=== PATIENT | female | born 1990 | race Two or more races ===

== ENCOUNTER 2020-02-17 15:48 | Emergency (ER) | payer OTHER ==
[~2020-02-17] VITALS: Ht 160 cm; Wt 109.5 kg
[2020-02-17] MEDS ORDERED: MOBI15TA PO (16:02)
[2020-02-17] MEDS ORDERED: dexameTHASONE 20MG/5ML VIAL (J1100 PER 1MG) IV ONE (16:15)
[2020-02-17] MEDS: COMBIVENT RESPIMAT 100-20MCG INHALER 4GM INH SCH ×2 (17:04→17:12)
[2020-02-17 17:53] LABS: INR 0.99; PROTHROMBIN TIME 13.3 SECONDS (11.8-14.0)
[2020-02-17 17:56] LABS: D-DIMER QUANT 573.71 ng/ml (<500)
[2020-02-17 18:17] LABS: ALBUMIN 4.1 GM/DL (3.2-5.2); ALT/SGPT 34 U/L (12-78); BILIRUBIN,DIRECT < 0.1 MG/DL (0.0-0.2); BILIRUBIN,TOTAL 0.3 MG/DL (0.2-1.0); CPK CREATINE PHOSPHOKINASE 221 U/L (26-192); MB/CK RELATIVE INDEX 0.45 (< OR =4); NT-PRO BNP 12 PG/ML (<125); THYROID STIMULATING HORMONE 0.967 uIU/ML (0.358-3.740); TOTAL PROTEIN 8.1 GM/DL (6.4-8.2); TROPONIN I < 0.02 NG/ML (< 0.10)
[2020-02-17] MEDS ORDERED: ISOVUE-370 76% 100ML VIAL As Ordered ONE (19:23)
[2020-02-17] MEDS ORDERED: ALBUTEROL 90 MCG/ACT 8GM HFA INHALER INH ONE (19:30)
--- NOTE | 2020-02-17 19:49 | REPVR ---
PROCEDURE INFORMATION: Exam: XR Chest, 1 View Exam date and time: 02/17/2020 7:18 PM Age: 29 years old Clinical indication: Other: Cough; Additional info: Dyspnea/cough TECHNIQUE: Imaging protocol: XR of the chest Views: 1 view. COMPARISON: No relevant prior studies available. FINDINGS: Lungs: Degree of lung inflation is normal. No evidence of pulmonary edema. No focal consolidation or parenchymal lung mass. Pleural space: No pleural effusion or pneumothorax. Heart/Mediastinum: Cardiac silhouette appears normal. No adenopathy or hilar mass. Bones/joints: Osseous structures show no concerning abnormality. IMPRESSION: No acute or focal cardiopulmonary process. Electronically signed by: Kosta Velasquez On 02/17/2020 19:48:55 PM
--- NOTE | 2020-02-17 19:54 | REPVR ---
PROCEDURE INFORMATION: Exam: CT Angiography Chest With Contrast Exam date and time: 02/17/2020 7:41 PM Age: 29 years old Clinical indication: Abnormal findings; Other: Elevated d-dimer, SOB, mirena TECHNIQUE: Imaging protocol: Computed tomographic angiography of the chest with intravenous contrast. 3D rendering (Not supervised by radiologist): MIP and/or 3D reconstructed images were created by the technologist. Radiation optimization: All CT scans at this facility use at least one of these dose optimization techniques: automated exposure control; mA and/or kV adjustment per patient size (includes targeted exams where dose is matched to clinical indication); or iterative reconstruction. Contrast material: ISOVUE 370; Contrast volume: 75 ml; Contrast route: INTRAVENOUS (IV); COMPARISON: CR PORTABLE CHEST X-RAY 02/17/2020 7:18 PM FINDINGS: Pulmonary arteries: Peripheral pulmonary artery evaluation limited by cardiac and respiratory motion artifact. Central pulmonary arteries show no intraluminal defect suggestive of clot. Aorta: No thoracic aortic aneurysm or dissection. Lungs: Pulmonary vascular/interstitial pattern does not suggest active pulmonary edema. No suspicious lung mass or air space process. No central endobronchial lesion. Pleural space: No pleural effusion or pneumothorax. Heart: No overt cardiac enlargement or abnormal volume of pericardial fluid. Lymph nodes: No enlarged mediastinal lymph nodes. Bones/joints: Bony structures show no acute fracture or destructive process. Soft tissues: No asymmetric abnormality of the extrathoracic soft tissues. IMPRESSION: 1. No evidence of acute, central pulmonary embolus. Peripheral pulmonary arterial evaluation is limited by cardiac and respiratory motion artifact. 2. No other acute or concerning focal intrathoracic abnormality. Electronically signed by: Kosta Velasquez On 02/17/2020 19:54:00 PM
[2020-02-17 20:16] LABS: BASO % 0.3 % (0.0-1.0); EOS # 0.1 10^3/uL (0.0-0.5); EOS % 0.7 % (0.0-3.0); HEMATOCRIT 37.1 % (36.0-47.0); HEMOGLOBIN 11.9 g/dl (12.0-15.5); LYMPH # 2.6 10^3/uL (1.5-5.0); LYMPH % 20.8 % (24.0-44.0); MEAN CORPUSCULAR HEMOGLOBIN 27.7 pg (27.0-33.0); MEAN CORPUSCULAR HGB CONC 32.1 g/dl (32.0-36.5); MEAN CORPUSCULAR VOLUME 86.5 fl (80.0-96.0); MONO # 0.8 10^3/uL (0.0-0.8); MONO % 6.5 % (0.0-5.0); NEUTROPHILS % 71.3 % (36.0-66.0); PLATELET COUNT, AUTOMATED 182 10^3/uL (150-450); RED BLOOD COUNT 4.29 10^6/uL (4.00-5.40); WHITE BLOOD COUNT 12.6 10^3/uL (4.0-10.0)
[2020-02-17] MEDS ORDERED: PRED20TA PO (20:29)
[2020-02-17] MEDS ORDERED: PROV108A INH (20:29)
[2020-02-17 21:04] VITALS: BP 111/69
--- NOTE | 2020-02-21 09:57 | ECGEPIP ---
[facility] - ED Test Date: 2020-02-17 Pat Name: BLAINE QUINTANA Department: Room: - Gender: Female R[employer]: [facility] : 1990 Requested By: YECENIA Camara Order Number: [id number] Reading MD: Stevie Roberts Measurements Intervals [place] Rate: 90 P: 18 NC: 136 QRS: -4 QRSD: 95 T: 7 QT: 364 QTc: 446 Interpretive Statements SINUS RHYTHM WITH SINUS ARRHYTHMIA INCOMPLETE RIGHT BUNDLE BRANCH BLOCK MODERATE VOLTAGE CRITERIA FOR LVH, CONSIDER NORMAL VARIANT NO PRIORS FOR COMPARISON Electronically Signed on 02-21-2020 9:57:34 EDT by Stevie Roberts
== END 2020-02-17 21:07 | disposition home or self-care (01) ==
LOC: EDBD 15:48 → M ED 15:48
DX: J45.909 Unspecified asthma, uncomplicated (principal); I45.19 Other right bundle-branch block
CPT/HCPCS: 36415; 71045; 71275; 80047; 80076; 82550; 82553; 83880; 84436; 84443; 84484; 84702; 85025; 85379; 85610; 93005; 93041; 94640; 94760; 99285; J1100; Q9967

== ENCOUNTER 2020-06-14 08:37 | Emergency (ER) | payer OTHER ==
[~2020-06-14] VITALS: Ht 160 cm; Wt 111.3 kg
[~2020-06-14 08:37] MED LIST: MOBI15TA PO; PRED20TA PO; PROV108A INH
[2020-06-14] MEDS ORDERED: ACET-897 PO (08:52)
[2020-06-14] MEDS ORDERED: KETO10TAB PO (09:25)
[2020-06-14] MEDS ORDERED: CYCL5TAB PO (09:25)
[2020-06-14] MEDS ORDERED: KETOROLAC 60MG 2ML VIAL IM ONE (09:30)
[2020-06-14 10:02] VITALS: BP 126/85
== END 2020-06-14 10:01 | disposition home or self-care (01) ==
LOC: M ED 08:37
DX: M62.830 Muscle spasm of back (principal); Z79.899 Other long term (current) drug therapy
CPT/HCPCS: 96372; 99283; J1885

== ENCOUNTER 2020-12-20 05:33 | Emergency (ER) | payer OTHER ==
[~2020-12-20] VITALS: Ht 172.7 cm; Wt 112.4 kg
[~2020-12-20 05:33] MED LIST changes: +ACET-897 PO; +CYCL5TAB PO; +KETO10TAB PO
[2020-12-20 07:39] LABS: BASO % 0.3 % (0.0-1.0); EOS # 0.1 10^3/uL (0.0-0.5); EOS % 0.8 % (0.0-3.0); HEMATOCRIT 40.6 % (36.0-47.0); HEMOGLOBIN 13.1 g/dl (12.0-15.5); LYMPH # 2.7 10^3/uL (1.5-5.0); LYMPH % 28.9 % (24.0-44.0); MEAN CORPUSCULAR HEMOGLOBIN 27.6 pg (27.0-33.0); MEAN CORPUSCULAR HGB CONC 32.3 g/dl (32.0-36.5); MEAN CORPUSCULAR VOLUME 85.7 fl (80.0-96.0); MONO # 0.8 10^3/uL (0.0-0.8); MONO % 8.2 % (2.0-8.0); NEUTROPHILS # 5.7 10^3/uL (1.5-8.5); NEUTROPHILS % 61.5 % (36.0-66.0); PLATELET COUNT, AUTOMATED 276 10^3/uL (150-450); RED BLOOD COUNT 4.74 10^6/uL (4.00-5.40); WHITE BLOOD COUNT 9.2 10^3/uL (4.0-10.0)
[2020-12-20 08:00] LABS: ALBUMIN 4.1 GM/DL (3.2-5.2); ALT/SGPT 39 U/L (12-78); BILIRUBIN,DIRECT < 0.1 MG/DL (0.0-0.2); BILIRUBIN,TOTAL 0.3 MG/DL (0.2-1.0); BLOOD UREA NITROGEN 11 MG/DL (7-18); CALCIUM LEVEL 9.2 MG/DL (8.5-10.1); CARBON DIOXIDE LEVEL 26 MEQ/L (21-32); CHLORIDE LEVEL 106 MEQ/L (98-107); CREATININE FOR GFR 0.83 MG/DL (0.55-1.30); GLOMERULAR FILTRATION RATE > 60.0 (>60); GLUCOSE, FASTING 97 MG/DL (70-100); LIPASE 78 U/L (73-393); POTASSIUM SERUM 4.5 MEQ/L (3.5-5.1); SODIUM LEVEL 137 MEQ/L (136-145); TOTAL PROTEIN 8.4 GM/DL (6.4-8.2)
[2020-12-20] MEDS ORDERED: MIRE1IUD IU (08:10)
[2020-12-20] MEDS ORDERED: NS 1,000 ML IV ONE (08:30)
[2020-12-20] MEDS ORDERED: KETOROLAC 30 MG/ML 1ML VIAL IV ONE (08:30)
[2020-12-20] MEDS ORDERED: ONDANSETRON 4MG/2ML VIAL IV ONE (08:30)
--- NOTE | 2020-12-20 09:06 | REP ---
INDICATION: right flank/abd pain. COMPARISON: Upper abdomen from CT chest 02/17/2020 TECHNIQUE: Noncontrast CT abdomen pelvis with coronal and sagittal reconstructions. FINDINGS: CT abdomen: Lung bases are clear the heart is not enlarged. There is no pericardial thickening or effusion. See no hiatal hernia. The liver, spleen, gallbladder pancreas, adrenal glands and stomach were unremarkable. Small bowel loops in the upper abdomen are without dilatation stool and gas are seen throughout the abdominal portion of the colon without colitis or diverticulitis. There is no evidence of perforation or free air on lung window review of all CT slices. There is no ascites. The aorta is without aneurysm. There is no periaortic, other retroperitoneal or mesenteric pathologic sized lymphadenopathy A punctate 2 mm stone upper pole of the left kidney in a pyramid. There is a focal scar at the superior pole of the left kidney. See no hydronephrosis on the left side. The right kidney shows no stone or hydronephrosis. It has smooth contours. No ureteral dilatation or stone was identified. The spine and ribs show no focal bone abnormality. CT pelvis: Bone windows show the sacrum, SI joints, pelvis and hips intact. Uterus is somewhat globular and shows a IUD in its central aspect. No pelvic or adnexal mass. The bladder is partially filled. It shows no wall thickening, mass or stone. I see no ventral or inguinal hernia nor pathologic sized inguinal adenopathy. Pelvic lymphadenopathy. The appendix is seen and normal. Small bowel loops in the distal ileum are unremarkable. The abdominal and pelvic portions of colon were unremarkable. IMPRESSION: 1. Nonobstructing calculus upper pole left kidney about 2 mm size and a pyramid there may be 1 other punctate 1 mm focus in that same kidney but no hydronephrosis, hydroureter, ureteral or bladder stone. No perinephric edema or periureteral edema. 2. The other abdominal organs were unremarkable. Colon, small bowel loops, stomach, appendix and bony structures unremarkable. 3. Somewhat globular uterus but with an IUD within and no pelvic mass or lymphadenopathy. <Electronically signed by Manuelito Argueta > 12/20/20 [id number]
[2020-12-20] MEDS ORDERED: KETO10TAB PO (10:49)
[2020-12-20] MEDS ORDERED: SIME180C25 PO (10:49)
[2020-12-20] MEDS ORDERED: PEPC1TAB5 PO (10:49)
[2020-12-20 10:56] VITALS: BP 107/52
== END 2020-12-20 11:10 | disposition home or self-care (01) ==
LOC: M ED 05:33
DX: N20.0 Calculus of kidney (principal); Z79.51 Long term (current) use of inhaled steroids
CPT/HCPCS: 74176; 80048; 80076; 81001; 83690; 84702; 85025; 87086; 96361; 96374; 96375; 99284; J1885; J2405

== ENCOUNTER 2020-12-20 18:47 | Emergency (ER) | payer OTHER ==
[~2020-12-20] VITALS: Ht 160 cm; Wt 111.8 kg
[~2020-12-20 18:47] MED LIST changes: +MIRE1IUD IU; +PEPC1TAB5 PO; +SIME180C25 PO
[2020-12-20 22:04] LABS: BASO % 0.3 % (0.0-1.0); EOS # 0.1 10^3/uL (0.0-0.5); EOS % 0.6 % (0.0-3.0); HEMOGLOBIN 12.8 g/dl (12.0-15.5); LYMPH # 2.3 10^3/uL (1.5-5.0); LYMPH % 15.9 % (24.0-44.0); MEAN CORPUSCULAR HEMOGLOBIN 27.7 pg (27.0-33.0); MEAN CORPUSCULAR VOLUME 86.6 fl (80.0-96.0); MONO # 1.1 10^3/uL (0.0-0.8); MONO % 7.3 % (2.0-8.0); NEUTROPHILS # 10.9 10^3/uL (1.5-8.5); NEUTROPHILS % 75.6 % (36.0-66.0); PLATELET COUNT, AUTOMATED 283 10^3/uL (150-450); RED BLOOD COUNT 4.62 10^6/uL (4.00-5.40); WHITE BLOOD COUNT 14.4 10^3/uL (4.0-10.0)
[2020-12-20 22:29] LABS: HCG, SERUM QUALITATIVE NEGATIVE (NEGATIVE)
[2020-12-20 22:31] LABS: ALBUMIN 4.2 GM/DL (3.2-5.2); ALT/SGPT 36 U/L (12-78); BILIRUBIN,DIRECT 0.1 MG/DL (0.0-0.2); BILIRUBIN,TOTAL 0.3 MG/DL (0.2-1.0); BLOOD UREA NITROGEN 9 MG/DL (7-18); CALCIUM LEVEL 8.7 MG/DL (8.5-10.1); CARBON DIOXIDE LEVEL 26 MEQ/L (21-32); CHLORIDE LEVEL 108 MEQ/L (98-107); CREATININE FOR GFR 0.82 MG/DL (0.55-1.30); GLOMERULAR FILTRATION RATE > 60.0 (>60); GLUCOSE, FASTING 99 MG/DL (70-100); POTASSIUM SERUM 4.1 MEQ/L (3.5-5.1); SODIUM LEVEL 139 MEQ/L (136-145); TOTAL PROTEIN 7.9 GM/DL (6.4-8.2)
[2020-12-20 22:32] LABS: LIPASE 68 U/L (73-393)
[2020-12-20] MEDS ORDERED: NS 1,000 ML IV ONE (22:45)
[2020-12-20] MEDS ORDERED: KETOROLAC 30 MG/ML 1ML VIAL IV ONE (22:45)
[2020-12-20 23:27] LABS: CK-MB VALUE MASS < 1.0 NG/ML (<3.6); CPK CREATINE PHOSPHOKINASE 125 U/L (26-192); TROPONIN I < 0.02 NG/ML (< 0.10)
--- NOTE | 2020-12-21 00:28 | REPVR ---
PROCEDURE INFORMATION: Exam: US Abdomen, Limited; Right Upper Quadrant Exam date and time: 12/20/2020 11:39 PM Age: 30 years old Clinical indication: Abdominal pain; Acute; Additional info: Ruq pain, nausea, vomiting TECHNIQUE: Imaging protocol: US abdomen. Real time ultrasound with image documentation. Limited exam focused on the right upper quadrant. COMPARISON: CT ABD PELVIS W/O CONTRAST 12/20/2020 8:38 AM FINDINGS: Liver: Liver is homogeneous in echotexture, with no focal lesion. Gallbladder: Gallbladder contains multiple intraluminal stones. One stone may be impacted in the gallbladder neck and measures 2.3 cm. These are not apparent on the CT. No gallbladder wall thickening or adjacent fluid Common bile duct: Common bile duct measures 4 mm in diameter. Pancreas: Pancreas is only partially visualized due to bowel shadowing. No overt abnormailty. Right kidney: Right kidney measures 10.4 cm in long axis. Right kidney appears normal. Intraperitoneal space: No free fluid. IMPRESSION: Cholelithiasis and possible impacted 2.3 cm non mobile gallbladder neck stone without evidence of gallbladder wall thickening at this point and with no common bile duct obstruction. Electronically signed by: Kosta Velasquez On 12/21/2020 00:27:18 AM
[2020-12-21 01:04] VITALS: BP 105/57
--- NOTE | 2020-12-21 05:38 | ECGEPIP ---
[facility] - ED Test Date: 2020-12-20 Pat Name: BLAINE QUINTANA Department: Room: - Gender: Female [employer]: JELANI : 1990 Requested By: KAROL Richards PA-C Order Number: [id number] Reading MD: Stevie Roberts Measurements Intervals [place] Rate: 89 P: 20 OR: 128 QRS: -8 QRSD: 86 T: 8 QT: 384 QTc: 467 Interpretive Statements Normal sinus rhythm POOR R WAVE PROGRESSION INCOMPLETE RIGHT BUNDLE BRANCH BLOCK NONSPECIFIC T WAVE ABNORMALITY(S) Minimal voltage criteria for LVH, may be normal variant ( R in aVL ) SIMILAR TO 02/17/20 Electronically Signed on 12-21-2020 5:38:04 EDT by Stevie Roberts
== END 2020-12-21 01:30 | disposition home or self-care (01) ==
LOC: M ED 18:47
DX: K80.50 Calculus of bile duct without cholangitis or cholecystitis without obstruction (principal); N20.0 Calculus of kidney; Z79.51 Long term (current) use of inhaled steroids
CPT/HCPCS: 74176; 76705; 80048; 80076; 81001; 82550; 82553; 83690; 84484; 84702; 84703; 85025; 87086; 93005; 96361; 96374; 96375; 99284; J1885; J2405; U0002

== ENCOUNTER 2021-03-04 13:49 | Emergency (ER) | payer OTHER ==
[~2021-03-04] VITALS: Ht 160 cm; Wt 111.0 kg
[2021-03-04] MEDS ORDERED: NS 1,000 ML IV ONE (16:40)
[2021-03-04 16:53] LABS: BASO % 0.4 % (0.0-1.0); EOS # 0.1 10^3/uL (0.0-0.5); HEMATOCRIT 41.6 % (36.0-47.0); HEMOGLOBIN 13.3 g/dl (12.0-15.5); LYMPH # 2.9 10^3/uL (1.5-5.0); LYMPH % 30.5 % (24.0-44.0); MEAN CORPUSCULAR HEMOGLOBIN 27.3 pg (27.0-33.0); MEAN CORPUSCULAR VOLUME 85.4 fl (80.0-96.0); MONO # 0.7 10^3/uL (0.0-0.8); MONO % 7.1 % (2.0-8.0); NEUTROPHILS # 5.8 10^3/uL (1.5-8.5); NEUTROPHILS % 60.8 % (36.0-66.0); PLATELET COUNT, AUTOMATED 294 10^3/uL (150-450); RED BLOOD COUNT 4.87 10^6/uL (4.00-5.40); WHITE BLOOD COUNT 9.5 10^3/uL (4.0-10.0)
--- NOTE | 2021-03-04 17:17 | REPVR ---
PROCEDURE INFORMATION: Exam: CT Head Without Contrast Exam date and time: 03/04/2021 5:05 PM Age: 30 years old Clinical indication: Syncope and collapse TECHNIQUE: Imaging protocol: Computed tomography of the head without contrast. Radiation optimization: All CT scans at this facility use at least one of these dose optimization techniques: automated exposure control; mA and/or kV adjustment per patient size (includes targeted exams where dose is matched to clinical indication); or iterative reconstruction. COMPARISON: No relevant prior studies available. FINDINGS: Brain: No intracranial hemorrhage or extra-axial fluid collection. No evidence of mass effect or midline shift. Joaquin-white matter differentiation is intact. Cerebral ventricles: No ventriculomegaly. Paranasal sinuses: Mild mucosal thickening of the paranasal sinuses. Mastoid air cells: Unremarkable. Bones/joints: No acute osseus lesion or fracture. Soft tissues: Unremarkable. IMPRESSION: 1. No acute intracranial pathology. 2. Mild mucosal thickening of the paranasal sinuses. Electronically signed by: Silvestre Ang On 03/04/2021 17:17:15 PM
[2021-03-04 17:28] LABS: THYROID STIMULATING HORMONE 0.875 uIU/ML (0.358-3.740)
[2021-03-04 18:31] LABS: CK-MB VALUE MASS < 1.0 NG/ML (<3.6); CPK CREATINE PHOSPHOKINASE 198 U/L (26-192); FREE T4 1.25 NG/DL (0.76-1.46); MAGNESIUM LEVEL 2.3 MG/DL (1.8-2.4); MB/CK RELATIVE INDEX 0.51 (< OR =4); TROPONIN I < 0.02 NG/ML (< 0.10)
--- NOTE | 2021-03-04 20:05 | ECGEPIP ---
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
[2021-03-04] MEDS ORDERED: AUGM875T28 PO (20:14)
[2021-03-04 21:11] VITALS: BP 124/67
== END 2021-03-04 21:12 | disposition home or self-care (01) ==
LOC: M ED 13:49
DX: E86.0 Dehydration (principal); J01.90 Acute sinusitis, unspecified; B97.4 Respiratory syncytial virus as the cause of diseases classified elsewhere; E66.9 Obesity, unspecified; Z79.899 Other long term (current) drug therapy; Z97.5 Presence of (intrauterine) contraceptive device; Z82.49 Family history of ischemic heart disease and other diseases of the circulatory system; Z82.3 Family history of stroke; Z82.0 Family history of epilepsy and other diseases of the nervous system